=== PATIENT | female | born 1945 | race Caucasian/White ===

== ENCOUNTER 2017-10-01 11:06 | Emergency (ER) | payer MEDICARE, BC ==
[~2017-10-01] VITALS: Ht 170.2 cm; Wt 70.0 kg
[~2017-10-01 11:06] MED LIST: ATOR40TA PO; CALC-472; DONE5TAB3 PO; HYDR1TAB PO; LISI-600 PO; MOT200T PO; NEBI5TAB5 PO
[2017-10-01 12:10] LABS: BASOPHILS % (AUTO) 0.6 % (0-1); EOSINOPHILS % (AUTO) 0.3 % (0-6); HEMATOCRIT 36.4 % (35.0-45.0); HEMOGLOBIN 12.6 g/dl (12.0-16.0); LYMPHOCYTES # (AUTO) 0.7 X10'3 (1.1-4.8); LYMPHOCYTES % (AUTO) 11.8 % (21-51); MEAN CORPUSCULAR HEMOGLOBIN 31.8 PG (27.0-31.0); MEAN CORPUSCULAR HGB CONC 34.7 % (33.0-36.5); MEAN CORPUSCULAR VOLUME 91.7 FL (78-98); MEAN PLATELET VOLUME 9.5 FL (7.4-10.4); MONOCYTES # (AUTO) 0.7 X10'3 (0-0.9); MONOCYTES % (AUTO) 11.5 % (2-12); NEUTROPHILS # (AUTO) 4.5 X10'3 (1.8-7.7); NEUTROPHILS % (AUTO) 75.8 % (42-75); PLATELET COUNT 201 X10'3 (140-440); RED BLOOD COUNT 3.97 X10'6 (4.20-5.60); RED CELL DISTRIBUTION WIDTH 13.2 % (11.5-14.5)
[2017-10-01] MEDS: normal saline 1000ML IV soln IVB ONE (12:21)
[2017-10-01] MEDS ORDERED: TAM75C PO (12:22)
[2017-10-01 12:25] LABS: ALANINE AMINOTRANSFERASE 19 U/L (12-78); ALBUMIN 3.4 G/DL (3.4-5.0); ALBUMIN/GLOBULIN RATIO 0.9 (1.1-1.5); ALKALINE PHOSPHATASE 44 IU/L (46-116); ANION GAP 10 (8-16); ASPARTATE AMINO TRANSFERASE 10 U/L (10-37); BILIRUBIN,TOTAL 0.4 MG/DL (0.1-1.0); BLOOD UREA NITROGEN 21 MG/DL (7-18); BUN/CREATININE RATIO 20.4 (6.6-38.0); CALCIUM 8.7 MG/DL (8.5-10.1); CHLORIDE 105 MMOL/L (99-107); CREATININE 1.03 MG/DL (0.40-0.90); GLUCOSE 116 MG/DL (70-104); POTASSIUM 3.7 MMOL/L (3.5-5.1); SODIUM 140 MMOL/L (135-145); TOTAL CARBON DIOXIDE 25.5 MMOL/L (24-32); TOTAL PROTEIN 7.2 G/DL (6.4-8.2); eGFR 53 ML/MIN
[2017-10-01] MEDS: oseltamivir phos 75mg capsule PO ONE (13:50)
[2017-10-01 15:05] VITALS: BP 141/65
== END 2017-10-01 15:14 ==
LOC: ER 11:07
DX: J11.1 Influenza due to unidentified influenza virus with other respiratory manifestations (principal); E78.00 Pure hypercholesterolemia, unspecified; I10 Essential (primary) hypertension; Z79.899 Other long term (current) drug therapy
CPT/HCPCS: 36415; 71045; 80053; 85025; 96360; 99285; J7030

== ENCOUNTER 2020-03-01 08:27 | Emergency (ER) | payer MEDICARE, BC ==
[~2020-03-01] VITALS: Ht 162.6 cm; Wt 70.0 kg
[2020-03-01 09:31] LABS: BASOPHILS # (AUTO) 0.1 X10'3 (0-0.2); EOSINOPHILS # (AUTO) 0.3 X10'3 (0-0.9); EOSINOPHILS % (AUTO) 3.3 % (0-6); HEMATOCRIT 35.6 % (35.0-45.0); LYMPHOCYTES # (AUTO) 1.7 X10'3 (1.1-4.8); LYMPHOCYTES % (AUTO) 16.9 % (21-51); MEAN CORPUSCULAR HEMOGLOBIN 32.2 PG (27.0-31.0); MEAN CORPUSCULAR HGB CONC 33.8 g/dL (33.0-36.5); MEAN CORPUSCULAR VOLUME 95.1 FL (78-98); MEAN PLATELET VOLUME 9.5 FL (7.4-10.4); MONOCYTES # (AUTO) 0.9 X10'3 (0-0.9); MONOCYTES % (AUTO) 8.3 % (2-12); NEUTROPHILS # (AUTO) 7.2 X10'3 (1.8-7.7); NEUTROPHILS % (AUTO) 70.5 % (42-75); PLATELET COUNT 242 X10'3 (140-440); RED BLOOD COUNT 3.74 X10'6 (4.20-5.60); RED CELL DISTRIBUTION WIDTH 12.8 % (11.5-14.5); WHITE BLOOD COUNT 10.2 X10'3 (4.5-11.0)
[2020-03-01 09:43] LABS: ALANINE AMINOTRANSFERASE 22 U/L (12-78); ALBUMIN 3.3 G/DL (3.4-5.0); ALBUMIN/GLOBULIN RATIO 0.8 (1.1-1.5); ALKALINE PHOSPHATASE 51 IU/L (46-116); ANION GAP 10 (8-16); ASPARTATE AMINO TRANSFERASE 16 U/L (10-37); BILIRUBIN,TOTAL 0.4 MG/DL (0.1-1.0); BLOOD UREA NITROGEN 17 MG/DL (7-18); BUN/CREATININE RATIO 14.3 (6.6-38.0); CHLORIDE 108 MMOL/L (99-107); CREATININE 1.19 MG/DL (0.40-0.90); POTASSIUM 3.4 MMOL/L (3.5-5.1); SODIUM 145 MMOL/L (135-145); TOTAL CARBON DIOXIDE 27.5 MMOL/L (24-32); TOTAL PROTEIN 7.2 G/DL (6.4-8.2); eGFR 44 ML/MIN
[2020-03-01 09:46] LABS: GLUCOSE 117 MG/DL (70-104)
--- NOTE | 2020-03-01 11:00 | NUR ---
CALLED PT'S FOR RIDE, LEFT A MESSAGE TO CALL BACK
--- NOTE | 2020-03-01 12:08 | NUR ---
SPOKE WITH [facility] TO TRANSFER PT BACK TO [facility], THE ETA IS 1300
[2020-03-01 12:45] VITALS: BP 163/85
== END 2020-03-01 13:35 | disposition home or self-care (01) ==
LOC: ER 08:27
DX: G40.909 Epilepsy, unspecified, not intractable, without status epilepticus (principal); N18.9 Chronic kidney disease, unspecified; E78.00 Pure hypercholesterolemia, unspecified; I10 Essential (primary) hypertension; Z79.899 Other long term (current) drug therapy
CPT/HCPCS: 36415; 70450; 72125; 80053; 82948; 85025; 99285

== ENCOUNTER 2021-04-12 05:40 | Inpatient (IN) | payer MEDICARE, BC ==
[~2021-04-12] VITALS: Ht 165.1 cm; Wt 85.0 kg
[~2021-04-12 05:40] MED LIST changes: -LISI-600 PO; +LISI20TA28 PO
[2021-04-12] MEDS ORDERED: dexamethasone sod phosphate 10mg/ml inj IV STA (06:35)
[2021-04-12 07:23] LABS: ABG BASE EXCESS -0.9 mmol/L (-2.0-2.0); ABG OXYGEN SATURATION 83.8 % (94-97); ABG PCO2 (T) 34.4 mmHg (32.0-45.0); ABG PO2 (T) 42.1 mmHg (75.0-100.0); ALLEN'S TEST POSITIVE; FCOHb 1.3 % (0.0-3.9); FLOW 4 L/min; FMetHb 0.3 % (0.0-1.5); FO2Hb 82.5 % (94-97); TOTAL HEMOGLOBIN 13.5 G/dl (12.0-16.0)
[2021-04-12 07:50] LABS: BASOPHILS # (AUTO) 0.1 X10'3 (0-0.2); BASOPHILS % (AUTO) 0.5 % (0-1); EOSINOPHILS % (AUTO) 0.1 % (0-6); HEMATOCRIT 40.2 % (35.0-45.0); HEMOGLOBIN 13.5 g/dl (12.0-16.0); LYMPHOCYTES # (AUTO) 2.3 X10'3 (1.1-4.8); LYMPHOCYTES % (AUTO) 11.9 % (21-51); MEAN CORPUSCULAR HEMOGLOBIN 31.3 PG (27.0-31.0); MEAN CORPUSCULAR HGB CONC 33.5 g/dL (33.0-36.5); MEAN CORPUSCULAR VOLUME 93.6 FL (78-98); MEAN PLATELET VOLUME 8.9 FL (7.4-10.4); MONOCYTES # (AUTO) 0.6 X10'3 (0-0.9); MONOCYTES % (AUTO) 3.1 % (2-12); NEUTROPHILS # (AUTO) 16.2 X10'3 (1.8-7.7); NEUTROPHILS % (AUTO) 84.4 % (42-75); PLATELET COUNT 412 X10'3 (140-440); RED CELL DISTRIBUTION WIDTH 13.5 % (11.5-14.5); WHITE BLOOD COUNT 19.2 X10'3 (4.5-11.0)
--- NOTE | 2021-04-12 08:08 | NUR ---
ABG done, PO2 ciriticaly low at 43 with SO2 of 83, which corelates with spo2. Dr. Guerrier notified, pt place on NRBM at 15 lpm. Pt had brief period of spo2 of 93% but then desats again to mid 80's. Dr. Scott okayed NT sxn. I only got small amounts of bile from uper airway. Pt is apparently comfort care. Pt remaiins on NBRM. Will cont to monitor
[2021-04-12 08:11] LABS: ALANINE AMINOTRANSFERASE 20 U/L (12-78); ALBUMIN 3.6 G/DL (3.4-5.0); ALBUMIN/GLOBULIN RATIO 0.8 (1.1-1.5); ALKALINE PHOSPHATASE 72 IU/L (46-116); ANION GAP 10 (8-16); ASPARTATE AMINO TRANSFERASE 18 U/L (10-37); BILIRUBIN,TOTAL 0.5 MG/DL (0.1-1.0); BLOOD UREA NITROGEN 17 MG/DL (7-18); BUN/CREATININE RATIO 17.9 (6.6-38.0); CHLORIDE 112 MMOL/L (99-107); CREATININE 0.95 MG/DL (0.40-0.90); GLUCOSE 201 MG/DL (70-104); POTASSIUM 3.3 MMOL/L (3.5-5.1); SODIUM 147 MMOL/L (135-145); TOTAL CARBON DIOXIDE 25.1 MMOL/L (24-32); eGFR 57 ML/MIN
--- NOTE | 2021-04-12 08:15 | NUR ---
CONFIRMED THAT PATIENT IS DNR/COMFORT CARE FROM PAPERWORK SENT BY [facility]. STORE STANDARDS ASSOCIATE CONSULTED. PATIENT TO BE SENT BACK TO [facility].
[2021-04-12 08:24] LABS: FERRITIN 128 NG/ML (8-252); LACTATE DEHYDROGENASE 218 U/L (81-234)
[2021-04-12 09:05] LABS: D-DIMER 1.24 MG/L FEU (0-0.50)
[2021-04-12] MEDS ORDERED: ondansetron/PF 4mg/2ml inj IV PRN (12:35)
[2021-04-12] MEDS ORDERED: acetaminophen 325mg tablet PO PRN (12:35)
[2021-04-12] MEDS ORDERED: magnesium hydroxide 30ml (MOM) UD suspension PO PRN (12:35)
[2021-04-12] MEDS ORDERED: morphine 2 MG/ML inj. syringe IV PRN ×2 (12:35)
[2021-04-12] MEDS ORDERED: mag hydrox/Alum hydrox/simeth 30ml oral suspension PO PRN (12:35)
[2021-04-12] MEDS: normal saline 1000ml 1,000 ML IV SCH (13:00)
--- NOTE | 2021-04-12 13:30 | NUR ---
Pt cleaned and changed into a gown. +Incont. of urine. Marianna-care done. [place] placed to catch urine. Decreased lung sounds throughout all field. +moist cough. Dry mouth. Responds to pain only.
[2021-04-12] MEDS ORDERED: SERT-434 PO (13:51)
[2021-04-12] MEDS ORDERED: ACET325T55 PO (13:51)
[2021-04-12] MEDS ORDERED: MEMA5TAB PO (13:51)
[2021-04-12] MEDS ORDERED: LISI1TAB51 PO (13:51)
[2021-04-12] MEDS ORDERED: NEBI5TAB10 PO (13:51)
[2021-04-12] MEDS ORDERED: CHOL100025 PO (13:51)
[2021-04-12] MEDS ORDERED: MIRT-116 PO (13:51)
[2021-04-12] MEDS ORDERED: LAMO25TA5 PO (13:51)
--- NOTE | 2021-04-12 18:46 | NUR ---
RECEIVED REPORT FROM ROBIN ISAAC IN ER AND AWAITING FOR PATIENT TO ARRIVE ON THE UNIT.
[2021-04-12 19:00] VITALS: BP 131/72
[2021-04-12] MEDS: acetaminophen 325mg tablet PO SCH (20:00)
[2021-04-12] MEDS: memantine 5mg tablet PO SCH (20:00)
[2021-04-12] MEDS: metoprolol tartrate 25mg tablet PO SCH (20:00)
[2021-04-12] MEDS: lamoTRIgine 25mg tablet PO SCH (20:00)
[2021-04-12] MEDS: docusate sod 100mg capsule PO SCH (20:00)
[2021-04-12] MEDS: mirtazapine 15mg tablet PO SCH (21:00)
--- NOTE | 2021-04-12 23:45 | NUR ---
Unable to administer all PO medications. Patient not responding to verbal commands and unsure whether she can swallow well. will communicate with oncoming RN.
--- NOTE | 2021-04-12 23:48 | NUR ---
The to patient in room 3A called and stated "not to treat his ". Advised to communicate with her doctor.
--- NOTE | 2021-04-13 06:01 | NUR ---
NONVERBAL AND UNABLE TO DART PATIENT.
--- NOTE | 2021-04-13 06:35 | NUR ---
Problems reprioritized. Patient report given, questions answered & plan of care reviewed with BRANDAN ISAAC.
--- NOTE | 2021-04-13 06:36 | NUR ---
Patient in room COVID 03. I have received report from Katie ISAAC and had the opportunity to ask questions and assume patient care.
[2021-04-13 07:00] VITALS: BP 121/69
[2021-04-13] MEDS: lisinopril 20mg tablet PO SCH (08:00)
[2021-04-13] MEDS: docusate sod 100mg capsule PO SCH ×2 (08:00→19:51)
[2021-04-13] MEDS: memantine 5mg tablet PO SCH ×2 (08:00→19:52)
[2021-04-13] MEDS: lamoTRIgine 25mg tablet PO SCH ×2 (08:00→19:51)
[2021-04-13] MEDS: acetaminophen 325mg tablet PO SCH ×2 (08:00→19:53)
[2021-04-13] MEDS: cholecalciferol (vitamin D3) 1,000 unit (25mcg) tablet PO SCH (08:00)
[2021-04-13] MEDS: metoprolol tartrate 25mg tablet PO SCH ×2 (08:00→19:51)
[2021-04-13] MEDS: sertraline 50mg tablet PO SCH (08:00)
[2021-04-13 08:57] LABS: BASOPHILS % (AUTO) 0.2 % (0-1); EOSINOPHILS # (AUTO) 0.2 X10'3 (0-0.9); EOSINOPHILS % (AUTO) 0.8 % (0-6); HEMATOCRIT 33.1 % (35.0-45.0); HEMOGLOBIN 10.5 g/dl (12.0-16.0); LYMPHOCYTES # (AUTO) 2.3 X10'3 (1.1-4.8); LYMPHOCYTES % (AUTO) 10.7 % (21-51); MEAN CORPUSCULAR HEMOGLOBIN 30.4 PG (27.0-31.0); MEAN CORPUSCULAR HGB CONC 31.8 g/dL (33.0-36.5); MEAN CORPUSCULAR VOLUME 95.8 FL (78-98); MEAN PLATELET VOLUME 9.3 FL (7.4-10.4); MONOCYTES # (AUTO) 1.3 X10'3 (0-0.9); MONOCYTES % (AUTO) 6.2 % (2-12); NEUTROPHILS # (AUTO) 17.5 X10'3 (1.8-7.7); NEUTROPHILS % (AUTO) 82.1 % (42-75); PLATELET COUNT 293 X10'3 (140-440); RED BLOOD COUNT 3.45 X10'6 (4.20-5.60); RED CELL DISTRIBUTION WIDTH 13.8 % (11.5-14.5); WHITE BLOOD COUNT 21.4 X10'3 (4.5-11.0)
[2021-04-13] MEDS ORDERED: DEXAMETHASONE 6 MG TABLET PO SCH (09:15)
--- NOTE | 2021-04-13 09:23 | NUR ---
Noted pt with a low Mike of 10. No edema or wounds per physical assessment. Pt admit for acute respiratory failure with hypoxia and COVID-19, with h/o dementia, currently A/O x 1, confused, obtunded, and non-verbal per physical assessment. Noted patient's code status is DNR with comfort care. Will continue to follow per LOS. Recommendations: 1) Bowel care per comfort care measures Addendum: 04/13/21 at [address] Amended: Links added.
[2021-04-13 09:26] LABS: ALBUMIN 2.8 G/DL (3.4-5.0); ANION GAP 11 (8-16); BLOOD UREA NITROGEN 20 MG/DL (7-18); BUN/CREATININE RATIO 22.5 (6.6-38.0); CALCIUM 8.5 MG/DL (8.5-10.1); CHLORIDE 114 MMOL/L (99-107); CREATININE 0.89 MG/DL (0.40-0.90); GLUCOSE 108 MG/DL (70-104); POTASSIUM 3.4 MMOL/L (3.5-5.1); SODIUM 150 MMOL/L (135-145); TOTAL CARBON DIOXIDE 24.8 MMOL/L (24-32); eGFR 62 ML/MIN
--- NOTE | 2021-04-13 10:21 | NUR ---
Paged Dr. Hanson PAGER ID: [phone] MESSAGE: Covdamian Gee RN ext Erika Sabillon. Patient is in comfort care. Do you still want labs done for her? How about PO meds? I could not give PO meds as she is not following command. ST eval?
--- NOTE | 2021-04-13 10:52 | NUR ---
Unable to give PO meds due to mental status, patient opens eyes but will not follow command to safely take PO meds. Dr. Hanson was paged about this
--- NOTE | 2021-04-13 12:32 | NUR ---
Patient coughed when given water. I tried apple sauce a little amount and she did fine. Charge nurse Ton notified about this. MRALIN Camilo advised me to order ST ruizal
[2021-04-13] MEDS: HYDROchlorothiazide 12.5mg capsule PO SCH (12:37)
[2021-04-13] MEDS ORDERED: LORazepam 2 mg/ml vial IV PRN (13:05)
[2021-04-13] MEDS ORDERED: morphine ORAL 5MG/0.25 ML (Conc. morphine) oral syringe PO PRN (13:05)
--- NOTE | 2021-04-13 13:24 | NUR ---
I asked Dr. Hanson if he still wants the lab tests done for this patient as she is on comfort care, he did not gave me an answer. Received order for Roxanol and Ativan PRN for comfort care
--- NOTE | 2021-04-13 18:36 | NUR ---
Problems reprioritized. Patient report given, questions answered & plan of care reviewed with Vickie ISAAC.
[2021-04-13] MEDS: mirtazapine 15mg tablet PO SCH (19:53)
[2021-04-13] MEDS: dexamethasone inj 6 MG in normal saline 50ml IV soln 50 ML IV SCH (21:55)
--- NOTE | 2021-04-14 06:49 | NUR ---
I have received report from Vickie ISAAC and had the opportunity to ask questions and assume patient care.
[2021-04-14] MEDS: morphine 10mg/0.5ml (conc. morphine) oral syringe PO PRN ×2 (07:53→15:06)
[2021-04-14] MEDS: HYDROchlorothiazide 12.5mg capsule PO SCH (08:00)
[2021-04-14] MEDS: cholecalciferol (vitamin D3) 1,000 unit (25mcg) tablet PO SCH (08:00)
[2021-04-14] MEDS: memantine 5mg tablet PO SCH (08:00)
[2021-04-14] MEDS: docusate sod 100mg capsule PO SCH (08:00)
[2021-04-14] MEDS: acetaminophen 325mg tablet PO SCH ×2 (08:00→20:00)
[2021-04-14] MEDS: sertraline 50mg tablet PO SCH (08:00)
[2021-04-14] MEDS: metoprolol tartrate 25mg tablet PO SCH (08:00)
[2021-04-14] MEDS: lisinopril 20mg tablet PO SCH (08:00)
[2021-04-14] MEDS: lamoTRIgine 25mg tablet PO SCH (08:00)
[2021-04-14 08:24] LABS: EOSINOPHILS % (AUTO) 0 % (0-6); MEAN PLATELET VOLUME 9.2 FL (7.4-10.4); WHITE BLOOD COUNT 14.1 X10'3 (4.5-11.0)
[2021-04-14 08:27] LABS: BASOPHILS % (AUTO) 0.1 % (0-1); HEMATOCRIT 30.9 % (35.0-45.0); HEMOGLOBIN 10.4 g/dl (12.0-16.0); LYMPHOCYTES # (AUTO) 0.9 X10'3 (1.1-4.8); LYMPHOCYTES % (AUTO) 6.4 % (21-51); MEAN CORPUSCULAR HEMOGLOBIN 31.5 PG (27.0-31.0); MEAN CORPUSCULAR HGB CONC 33.7 g/dL (33.0-36.5); MEAN CORPUSCULAR VOLUME 93.7 FL (78-98); MONOCYTES # (AUTO) 0.3 X10'3 (0-0.9); MONOCYTES % (AUTO) 1.9 % (2-12); NEUTROPHILS # (AUTO) 12.9 X10'3 (1.8-7.7); NEUTROPHILS % (AUTO) 91.6 % (42-75); PLATELET COUNT 300 X10'3 (140-440); RED BLOOD COUNT 3.29 X10'6 (4.20-5.60); RED CELL DISTRIBUTION WIDTH 13.8 % (11.5-14.5)
[2021-04-14 09:33] LABS: ALBUMIN 2.8 G/DL (3.4-5.0); ANION GAP 11 (8-16); BLOOD UREA NITROGEN 24 MG/DL (7-18); BUN/CREATININE RATIO 27.9 (6.6-38.0); CALCIUM 8.9 MG/DL (8.5-10.1); CHLORIDE 117 MMOL/L (99-107); CREATININE 0.86 MG/DL (0.40-0.90); GLUCOSE 146 MG/DL (70-104); POTASSIUM 3.5 MMOL/L (3.5-5.1); SODIUM 152 MMOL/L (135-145); TOTAL CARBON DIOXIDE 23.6 MMOL/L (24-32); eGFR 64 ML/MIN
[2021-04-14] MEDS: dexamethasone inj 6 MG in normal saline 50ml IV soln 50 ML IV SCH ×2 (10:03→20:15)
[2021-04-14 12:04] VITALS: BP 141/84
[2021-04-14] MEDS: normal saline 1000ml 1,000 ML IV SCH (12:35)
--- NOTE | 2021-04-14 13:54 | NUR ---
pt was turned and marvin care provided, pt is alert and responsive (but not oriented-has dementia) pt is able to eat and drink water if fed.
[2021-04-14 16:47] VITALS: BP 147/99
[2021-04-14 18:00] VITALS: BP 132/69
--- NOTE | 2021-04-14 18:40 | NUR ---
Patient in room COVID 03. I have received report from URSZULA ISAAC and had the opportunity to ask questions and assume patient care.
--- NOTE | 2021-04-15 06:12 | NUR ---
PATIENT'S HEART RATE DROPS IN THE MID 40S WHEN SLEEPING.
--- NOTE | 2021-04-15 06:36 | NUR ---
Problems reprioritized. Patient report given, questions answered & plan of care reviewed with URSZULA ISAAC.
[2021-04-15] MEDS: dexamethasone inj 6 MG in normal saline 50ml IV soln 50 ML IV SCH ×2 (07:46→21:31)
[2021-04-15] MEDS: acetaminophen 325mg tablet PO SCH ×2 (08:00→20:00)
[2021-04-15 08:21] VITALS: BP 119/69
[2021-04-15 11:21] VITALS: BP 146/76
[2021-04-15 17:30] VITALS: BP 116/64
[2021-04-15 22:00] VITALS: BP 139/71
--- NOTE | 2021-04-16 06:30 | NUR ---
I have received report from Breana ISAAC and had the opportunity to ask questions and assume patient care.
[2021-04-16] MEDS: dexamethasone inj 6 MG in normal saline 50ml IV soln 50 ML IV SCH ×2 (07:54→20:49)
[2021-04-16] MEDS ORDERED: DEXA6TAB PO (09:18)
[2021-04-16] MEDS ORDERED: ALBU8.5H17 INH (09:19)
[2021-04-16 10:13] VITALS: BP 140/55
--- NOTE | 2021-04-16 16:27 | NUR ---
I have received report from Breana ISAAC and had the opportunity to ask questions and assume patient care.
[2021-04-16 18:00] VITALS: BP 144/74
--- NOTE | 2021-04-16 18:30 | NUR ---
Patient in room COVID 03. I have received report from MARLIN Moser and had the opportunity to ask questions and assume patient care.
--- NOTE | 2021-04-17 06:27 | NUR ---
Problems reprioritized. Patient report given, questions answered & plan of care reviewed with MARLIN Marquez.
[2021-04-17 07:00] VITALS: BP 148/80
--- NOTE | 2021-04-17 07:36 | NUR ---
Patient in room COVID 03. I have received report from Sandi ISAAC and had the opportunity to ask questions and assume patient care.
--- NOTE | 2021-04-17 13:36 | NUR ---
Pt stable for discharge per MD order, all discharge instructions reviewed with patient and all questions answered. New prescriptions faxed to pharmacy, education recieved. PIV discontinued, cannula intact. Telemetry discontinued, television program director notified. All belongings collected and sent with patient. Pt picked up in private vehicle by family, wheeled to lobby by staff.
== END 2021-04-17 11:42 | DRG 177 ==
LOC: ER 05:41 → ED HOLD 12:37 → COVID IP 17:00
PROVIDERS: ADMIT Family Medicine; ATTEND Family Medicine
DX: U07.1 COVID-19 (principal); J96.01 Acute respiratory failure with hypoxia; J12.82 Pneumonia due to coronavirus disease 2019; E78.00 Pure hypercholesterolemia, unspecified; E78.5 Hyperlipidemia, unspecified; F02.80 Dementia in other diseases classified elsewhere, unspecified severity, without behavioral disturbance, psychotic disturbance, mood disturbance, and anxiety; I10 Essential (primary) hypertension; Z51.5 Encounter for palliative care; Z66 Do not resuscitate
CPT/HCPCS: 36415; 36600; 71045; 80048; 80053; 82728; 82803; 83605; 83615; 83880; 84145; 84484; 85018; 85025; 85379; 85384; 86140; 87040; 92508; 92616; 93005; 94760; 94799; 99285; G0378; J1100; J7030; J8540